=== PATIENT | male | born 1990 | race Two or more races ===

== ENCOUNTER 2021-01-13 11:12 | Emergency (ER) | payer OTHER ==
[~2021-01-13 11:12] MED LIST: IBU800 MG PO; PENVEE K 500 M500 MG PO; PREDNISONE 10 M10 MG PO; ZITHROMAX250 MG PO
[2021-01-13 11:53] LABS: HEMOGLOBIN 15.6 gm/dl (14.0-17.5); RED BLOOD COUNT 5.5 M/UL (4.20-5.50); WHITE BLOOD COUNT 14.4 K/UL (4.5-11.0)
[2021-01-13 12:12] LABS: BUN/CREATININE RATIO 9 (0-10)
[2021-01-13] MEDS ORDERED: AUGMENTIN 875-1 EACH PO (17:01)
[2021-01-14] MEDS ORDERED: PAIN RELIEF650 MG PO (13:12)
== END 2021-01-13 18:40 | disposition home or self-care (01) ==
LOC: ER1 11:12
DX: K37 Unspecified appendicitis (principal); I88.0 Nonspecific mesenteric lymphadenitis; K52.9 Noninfective gastroenteritis and colitis, unspecified; F17.200 Nicotine dependence, unspecified, uncomplicated
CPT/HCPCS: 80053; 81001; 83690; 85025; 85652; 86140; 87040; 96374; 96375; 99284; J1885; J2543; J7030; Q9967

== ENCOUNTER 2021-01-13 23:55 | Observation (INO) | payer BC, OTHER ==
[~2021-01-13] VITALS: Ht 177.8 cm; Wt 95.3 kg
[~2021-01-13 23:55] MED LIST changes: +AUGMENTIN 875-1 EACH PO
[2021-01-14 02:01] LABS: HEMOGLOBIN 13.3 gm/dl (14.0-17.5); RED BLOOD COUNT 4.75 M/UL (4.20-5.50)
[2021-01-14 02:12] LABS: BUN/CREATININE RATIO 10 (0-10)
--- NOTE | 2021-01-14 10:54 | NUR ---
PATIENT RETURNED TO FLOOR FROM PACU AT THIS TIME. RESTING QUIETLY WITH EYES CLOSED. EASILY AROUSABLE TO VERBAL STIMULI. VITAL SIGNS WNL. INCISIONS TO ABD IN TACT WITH DERMABOND USED FOR CLOSURE. ABD IS SOFT, BOWEL SOUNDS POSITIVE X4. CALL [facility].
[2021-01-14] MEDS ORDERED: PAIN RELIEF650 MG PO (13:12)
== END 2021-01-14 13:40 | disposition home or self-care (01) ==
LOC: ER1 23:55 → MED SURG 4 01-14 03:02 → CDU 01-14 03:02 → MED SURG 4 01-14 04:35
PROVIDERS: Family Medicine; ADMIT Surgery
DX: K35.80 Unspecified acute appendicitis (principal); R59.1 Generalized enlarged lymph nodes; F17.210 Nicotine dependence, cigarettes, uncomplicated; Z20.822 Contact with and (suspected) exposure to COVID-19
CPT/HCPCS: 80053; 81001; 83690; 85025; 99285; G0378; J0690; J1100; J1885; J2001; J2250; J2270; J2405; J2543; J2704; J2710; J3010; J7030; J7120; U0002

== ENCOUNTER 2021-06-14 15:33 | Emergency (ER) | payer OTHER ==
[~2021-06-14 15:33] MED LIST changes: +PAIN RELIEF650 MG PO
[2021-06-14] MEDS ORDERED: NAPROSYN500 MG PO (16:27)
== END 2021-06-14 17:36 | disposition home or self-care (01) ==
LOC: ER1 15:33
DX: S62.611A Displaced fracture of proximal phalanx of left index finger, initial encounter for closed fracture (principal); F17.200 Nicotine dependence, unspecified, uncomplicated; V89.0XXA Person injured in unspecified motor-vehicle accident, nontraffic, initial encounter
CPT/HCPCS: 29130; 73140; 99283

== ENCOUNTER 2021-10-24 06:28 | Emergency (ER) | payer OTHER ==
[~2021-10-24 06:28] MED LIST changes: +NAPROSYN500 MG PO
[2021-10-24] MEDS ORDERED: CLINDAMYCIN HC300 MG PO (06:50)
== END 2021-10-24 07:41 | disposition home or self-care (01) ==
LOC: ER1 06:28
DX: K04.7 Periapical abscess without sinus (principal); K02.9 Dental caries, unspecified
CPT/HCPCS: 99283

== ENCOUNTER 2021-10-27 11:04 | Emergency (ER) | payer OTHER ==
[~2021-10-27 11:04] MED LIST changes: +CLINDAMYCIN HC300 MG PO
[2021-10-27 11:46] LABS: HEMOGLOBIN 12.9 gm/dl (14.0-17.5); RED BLOOD COUNT 4.97 M/UL (4.20-5.50); WHITE BLOOD COUNT 12.2 K/UL (4.5-11.0)
[2021-10-27 12:13] LABS: BUN/CREATININE RATIO 18 (0-10)
== END 2021-10-27 13:15 | disposition home or self-care (01) ==
LOC: ER1 11:04
PROVIDERS: Physician Assistant
DX: R42 Dizziness and giddiness (principal); R11.0 Nausea; K02.9 Dental caries, unspecified; K04.7 Periapical abscess without sinus; F17.200 Nicotine dependence, unspecified, uncomplicated; Z90.89 Acquired absence of other organs
CPT/HCPCS: 80053; 81001; 82550; 82553; 84484; 85025; 93005; 96374; 99284; J2405